=== PATIENT | female | born 1995 | race Caucasian/White ===

== ENCOUNTER 2018-07-05 21:53 | Emergency (ER) | payer OTHER ==
[2018-07-05 22:11] VITALS: BP 113/81; PULSE 100; TEMP 98; BMI 19.3
--- NOTE | 2018-07-05 22:34 | PDOC ---
Attending Attestation - Resident Resident Name: KamiJen - ED Attending Attestation I have performed the following: I have examined & evaluated the patient, The case was reviewed & discussed with the resident, I agree w/resident's findings & plan, Exceptions are as noted - Medical Decision Making 07/05/18 22:33 Vital Signs Temp Pulse Resp BP Pulse Ox 98.0 F 100 H 16 113/81 100 07/05/18 22:08 07/05/18 22:08 07/05/18 22:08 07/05/18 22:08 07/05/18 22:08 23 yo F patient presents with evaluation for vaginal lesion. The patient was recently seen at [facility] and was diagnosed as "herpes" and given valacyclovir. Pt reports that she had a gonorrhea and chlamydia urine test ordered and was given antibiotics (IV and pills, likely for GC). Pt is currently taking the medications. However, the patient continues to have a persistent lesion and is requesting a second evaluation. 07/05/18 23:05 The pelvic exam demonstrates: cottage like discharge, a small open lesion in the inferior portion of the vagina, concerning for herpetic lesion (not super infected), but no bleeding. Will instruct pt to continue taking valaclovir. Pt reports that her GC/CT and Herpes tests are still pending at [facility] and they will have follow up. Will treat her yeast infection with diflucan. <Hiro Corley - Last Filed: 07/05/18 23:04> - HPI HPI: 07/05/18 23:15 The patient is a 23 year old female, with no significant past medical history, who presents to the emergency department with, a vaginal lesion. As per patient , she was recently seen at [facility], diagnosed with herpes, and was treated with Valacyclovir. She reports recently being diagnosed with gonorrhea and chlamydia. She denies recent fevers, chills, headache or dizziness. She denies recent nausea, vomit, diarrhea or constipation. She denies recent dysuria, frequency, urgency or hematuria. She denies recent chest pain or shortness of breath. Allergies: NKA Past surgical history: None reported. Social history: Nonsmoker. Denies EtOH use and recreational drug use. - Physicial Exam PE: 07/05/18 23:15 GENERAL: Awake, alert, and fully oriented, in no acute distress HEAD: No signs of trauma NECK: Normal ROM. EXTREMITIES: Normal range of motion. +PELVIC: Cottage-like discharge, a small open lesion in the inferior portion of the vagina, concerning for herpetic lesion (not very infected), no active bleeding. NEUROLOGICAL: Cranial nerves II through XII grossly intact. Normal speech, normal gait <Cristal Hammer - Last Filed: 07/05/18 23:16> Attestations - Attestations 07/05/18 23:15 Documentation prepared by Cristal Hammer, acting as biomedical service engineer for Hiro Corley MD. <Cristal Hammer - Last Filed: 07/05/18 23:16>
--- NOTE | 2018-07-05 22:34 | PDOC ---
History of Present Illness - General Chief Complaint: Vaginal Sxs Stated Complaint: VAGINAL PAIN Time Seen by Provider: 07/05/18 22:22 - History of Present Illness Initial Comments: 07/05/18 22:31 23 year old female with a PMH of seasonal allergies presents to the ED c/o single lesion in her groin. Patient states she noticed the lesion one week previous and tried putting homemade mosturizing cream without any changes in the lesion. Patient was evaluated at another facility earlier this week and prescribed Valcyclovir. Patient's mother remained concerned and brought patient to our ED this evening for futher evaluation. Patient is sexually active with one male partner and states she is on control pills. No recent changes in medications, personal hygeine products. Patient denies chest pain, shortness of breath. Patient denies abdominal cramping, vaginal bleeding, dysuria/hematuria. Patient denies sick contacts or recent travel. Allergy: Ibuprofen Past History - Past Medical History Allergies/Adverse Reactions: Allergies Allergy/AdvReac Type Severity Reaction Status Date / Time No Known Allergies Allergy Verified 07/05/18 22:10 - Suicide/Smoking/Psychosocial Hx Smoking History: Never smoked Have you smoked in the past 12 months: No Information on smoking cessation initiated: No Hx Alcohol Use: No Drug/Substance Use Hx: No Review of Systems - Review of Systems Constitutional: No: Chills, Fever HEENTM: No: Blurred Vision, Double Vision Respiratory: No: Cough, Shortness of Breath Cardiac (ROS): No: Chest Pain, Lightheadedness, Palpitations, Syncope ABD/GI: No: Constipated, Diarrhea, Nausea, Vomiting : No: Burning, Dysuria *Physical Exam - Vital Signs Last Vital Signs Temp Pulse Resp BP Pulse Ox 98.0 F 100 H 16 113/81 100 07/05/18 22:08 07/05/18 22:08 07/05/18 22:08 07/05/18 22:08 07/05/18 22:08 - Physical Exam General Appearance: Yes: Nourished, Appropriately Dressed Neck: positive: Trachea midline, Supple Female Pelvic Exam: positive: normal external exam, cervical os closed, discharge, lesions (Healing herpetic lesion at 7 o'clock) Musculoskeletal: positive: CVA Tenderness (R), CVA Tenderness (L) Extremity: positive: Normal Capillary Refill, Normal Inspection Integumentary: positive: Normal Color, Dry, Warm Neurologic: positive: Fully Oriented, Alert Medical Decision Making - Medical Decision Making 07/05/18 22:34 23 year old female with single lesion to groin area. Currently being treated w/Valvcyclovir. Received G/C treatment at [facility]. Herpes blood antigen testing pending. 07/05/18 23:13 Pelvic exam shows healing herpetic lesion @ 7 o'clock position as well as yellowish and whitish discharge in the vaginal vault. Patient currently being treated with Valcyclovir. Will treat patient for possible bacterial vaginosis. Patient's partner @ bedside counseled on importance of evaluation - states he has an appointment with his PMD on Friday. Patient and patient's partner counseled to refrain from sexual activity until test results for both patient and patient's partner are confirmed. Patient counseled on plan of care and given follow-up instructions. I discussed the physical exam findings, ancillary test results and final diagnoses with the patient. I answered all of the patient's questions. The patient was satisfied with the care received and felt comfortable with the discharge plan and treatment plan. The patient will return to the Emergency Department with any new, persistent or worsening symptoms. *DC/Admit/Observation/Transfer Diagnosis at time of Disposition: Vaginal discharge - Discharge Dispostion Disposition: HOME Condition at time of disposition: Good Decision to Admit order: No - Referrals Referrals: ON STAFF,NOT [Primary Care Provider] - - Patient Instructions Printed Discharge Instructions: DI for Vaginal Yeast Infection, DI for Vaginal Discharge Additional Instructions: You were evaluated today for a vaginal lesion and vaginal discharge and treated for a possible vaginal yeast infection. Please continue to take your Valcyclovir. You can call the Emergency Department in 72 hours for results of your gonorrhea and chlamydia test Please refrain from sexual activity until you and your partner are cleared of sexually transmitted infections including Herpes, Gonorrhea and Chlamydia. Return to the Emergency Department for any new/worsening/concerning symptoms. - Post Discharge Activity Forms/Work/School Notes: Back to Work
[2018-07-05] MEDS ORDERED: FLUCONAZOLE 100 MG TABLET (UD) PO ONE (23:13)
[2018-07-05] MEDS ORDERED: FLUCONAZOLE 100 MG TABLET (UD) ONE (23:17)
== END 2018-07-05 23:50 | disposition home or self-care (01) ==
LOC: JER 21:53
DX: N76.0 Acute vaginitis (principal); B96.89 Other specified bacterial agents as the cause of diseases classified elsewhere
CPT/HCPCS: 36415; 87081; 87491; 87591; 99281-25